=== PATIENT | female | born 1980 | race Caucasian/White ===

== ENCOUNTER 2017-04-19 09:10 | Emergency (ER) | payer OTHER ==
[2017-04-19 09:33] VITALS: BP 109/69; PULSE 94; TEMP 98.2; BMI 26.6
--- NOTE | 2017-04-19 10:25 | PDOC ---
History of Present Illness - History of Present Illness Initial Comments: 04/19/17 10:48 Patient is a 36 year old female with PMHx of from previous and currently 19 weeks , who presents to the ER with vaginal bleeding and lower abdominal pain since last night. Patient states that her LMP was in December. She has been releasing clots of blood vaginally that began last night. She was supposed to see her PCP today, but came to the ER instead because of her abdominal pain. PMD: Mayra Branham <Ade Dunlap - Last Filed: 04/19/17 10:48> <Rand Sánchez - Last Filed: 04/19/17 15:18> - General Chief Complaint: Vaginal Bleeding Stated Complaint: VAGINAL BLEEDING (19 WKS ) Time Seen by Provider: 04/19/17 10:19 Past History <Ade Dunlap - Last Filed: 04/19/17 10:48> - Past Medical History Asthma: No Cancer: No Cardiac Disorders: No COPD: No Diabetes: No HTN: No Seizures: No Thyroid Disease: No - Suicide/Smoking/Psychosocial Hx Smoking History: Never smoked Have you smoked in the past 12 months: No Information on smoking cessation initiated: No Hx Alcohol Use: No Drug/Substance Use Hx: No Substance Use Type: None Hx Substance Use Treatment: No <Rand Sánchez - Last Filed: 04/19/17 15:18> - Past Medical History Allergies/Adverse Reactions: Allergies Allergy/AdvReac Type Severity Reaction Status Date / Time No Known Allergies Allergy Verified 04/19/17 09:29 Home Medications: Ambulatory Orders Vit/Iron Fumarate/FA [ Tablet] 1 each PO DAILY 11/20/14 Acetaminophen [Tylenol .Regular Strength -] 650 mg PO Q4H PRN #0 tablet Ibuprofen [Motrin -] 600 mg PO Q4H PRN #30 tablet 11/25/14 Review of Systems - Review of Systems Comments:: 04/19/17 10:50 GENERAL/CONSTITUTIONAL: No fever or chills. No weakness. HEAD, EYES, EARS, NOSE AND THROAT: No change in vision. No ear pain or discharge. No sore throat. GASTROINTESTINAL: + lower abdominal pain. No nausea, vomiting, diarrhea or constipation. GENITOURINARY: No dysuria, frequency, or change in urination. CARDIOVASCULAR: No chest pain or shortness of breath. RESPIRATORY: No cough, wheezing, or hemoptysis. MUSCULOSKELETAL: No joint or muscle swelling or pain. No neck or back pain. SKIN: No rash NEUROLOGIC: No headache, vertigo, loss of consciousness, or change in strength/ sensation. ENDOCRINE: No increased thirst. No abnormal weight change. HEMATOLOGIC/LYMPHATIC: + vaginal bleeding (clots). No anemia, easy bleeding, or history of blood clots. ALLERGIC/IMMUNOLOGIC: No hives or skin allergy. <Ade Dunlap - Last Filed: 04/19/17 10:48> *Physical Exam - Vital Signs Last Vital Signs Temp Pulse Resp BP Pulse Ox 98.2 F 94 H 18 109/69 100 04/19/17 09:31 04/19/17 09:31 04/19/17 09:31 04/19/17 09:31 04/19/17 09:31 - Physical Exam Comments: 04/19/17 10:51 GENERAL: Awake, alert, and fully oriented, in no acute distress HEAD: No signs of trauma EYES: PERRLA, EOMI, sclera anicteric, conjunctiva clear ENT: Auricles normal inspection, hearing grossly normal, nares patent, oropharynx clear without exudates. Moist mucosa NECK: Normal ROM, supple, no lymphadenopathy, JVD, or masses LUNGS: Breath sounds equal, clear to auscultation bilaterally. No wheezes, and no crackles HEART: Regular rate and rhythm, normal S1 and S2, no murmurs, rubs or gallops ABDOMEN: +lower abdominal tenderness. Soft, normoactive bowel sounds. No guarding, no rebound. No masses EXTREMITIES: Normal range of motion, no edema. No clubbing or cyanosis. No cords, erythema, or tenderness NEUROLOGICAL: Cranial nerves II through XII grossly intact. Normal speech, normal gait SKIN: Warm, Dry, normal turgor, no rashes or lesions noted. PELVIC: No rashes or lesions, Fingertip at cervical os , active bleeding at cervix, small clots, no tissue . Positive suprapubic and adnexal tenderness. <Ade Dunlap - Last Filed: 04/19/17 10:48> - Vital Signs Last Vital Signs Temp Pulse Resp BP Pulse Ox 98.2 F 94 H 18 109/69 100 04/19/17 09:31 04/19/17 09:31 04/19/17 09:31 04/19/17 09:31 04/19/17 09:31 <Rand Sánchez - Last Filed: 04/19/17 15:18> ED Treatment Course - LABORATORY CBC & Chemistry Diagram: 04/19/17 11:00 04/19/17 11:00 <Rand Sánchez - Last Filed: 04/19/17 15:18> Medical Decision Making - Medical Decision Making 04/19/17 11:00 a/p: 36yo female with vaginal bleeding and abd cramping that started yesterday -labs tv ultrasound -ua -pain and nausea control ivf hydration concern for spontaneous 04/19/17 14:17 re-eval: no bleeding at this time no pain at this time discussed lab and imaging results. call placed to dr. branham to compare ultrasounds and hcg levels. 04/19/17 15:[address] branham - states prior ultrasound showed gestational sac without pole [place] [address]21 today gestational sac moving towards cervix and beta 7000 consistent with spontaneous this was discussed with dr. branham who agrees with expectant management and follow up with her on Wednesday for repeat beta this plan was discussed in full detail with the patient. She verbalizes full understanding and agrees with the plan. Pt is stable for d/c home at this time <Rand Sánchez - Last Filed: 04/19/17 15:18> *DC/Admit/Observation/Transfer - Attestations Scribe Attestion: 04/19/17 10:55 Documentation prepared by Ade Dunlap, acting as hospitalist medical director for Rand Sánchez DO. <Ade Dunlap - Last Filed: 04/19/17 10:48> - Discharge Dispostion Admit: No - Attestations Physician Attestion: 04/19/17 15:18 I, Dr. Rand Sánchez DO, attest that this document has been prepared under my direction and personally reviewed by me in its entirety. I further attest, that it accurately reflects all work, treatment, procedures and medical decision -making performed by me. <Rand Sánchez - Last Filed: 04/19/17 15:18> Diagnosis at time of Disposition: Spontaneous - Discharge Dispostion Disposition: HOME Condition at time of disposition: Stable - Referrals Referrals: Mayra Branham MD [Primary Care Provider] - - Patient Instructions Printed Discharge Instructions: DI for Miscarriage Additional Instructions: Please follow up with Dr. Branham on Wednesday for repeat lab work. Please take your ultrasound report and lab work to Dr. Gonzalez office. Please return to the ED with any concerns. - Post Discharge Activity
[2017-04-19] MEDS ORDERED: ACETAMINOPHEN 1000 MG/100 ML VIAL (NON FORMULARY) IVPB ONE (10:36)
[2017-04-19] MEDS ORDERED: SODIUM CHLORIDE 0.9% 1000 ML INFUS.BAG IV ONE (10:36)
[2017-04-19] MEDS ORDERED: ONDANSETRON 4 MG/2 ML VIAL IVPUSH ONE (10:58)
[2017-04-19] MEDS ORDERED: ACETAMINOPHEN INJECTION 100 ML IVPB ONE (11:01)
[2017-04-19 11:20] LABS: BASOPHIL 0.3 % (0-2.0); EOSINOPHIL 1.4 % (0-4.5); MCH 28.9 pg (25.7-33.7); MCHC 32.4 g/dl (32.0-36.0); MEAN CELL VOLUME 89.1 fl (80-96); MEAN PLT VOLUME 8.7 fl (7.5-11.1); NEUTROPHILS 77.9 % (42.8-82.8); PLATELET COUNT 217 K/MM3 (134-434); RDW 14.1 % (11.6-15.6); WHITE BLOOD COUNT 11.9 K/mm3 (4.0-10.0)
[2017-04-19 11:47] LABS: ALBUMIN 3.8 g/dl (3.4-5.0); ALK PHOS 79 U/L (45-117); ANION GAP 10 (8-16); BILIRUBIN,TOTAL 0.7 mg/dL (0.2-1.0); CALCIUM 8.8 mg/dL (8.5-10.1); CO2 24 mmol/L (21-32); CREATININE 0.7 mg/dL (0.55-1.02); GLUCOSE,RANDOM 113 mg/dL (74-106); SGOT/AST 15 U/L (15-37); SGPT/ALT 21 U/L (12-78); TOT PROT 7.4 g/dl (6.4-8.2)
[2017-04-19 11:50] LABS: PH,URINE 5.5 (5.0-8.0); URINE BILIRUBIN 1+ (NEGATIVE); URINE BLOOD 3+ (NEGATIVE); URINE GLUCOSE (UA) NEGATIVE (NEGATIVE); URINE KETONE TRACE (NEGATIVE); URINE NITRITE NEGATIVE (NEGATIVE); URINE PROTEIN TRACE (NEGATIVE); URINE UROBILINOGEN 0.2 mg/dL (0.2-1.0)
[2017-04-19 11:55] LABS: INR 1.09 (0.82-1.09); PROTHROMBIN TIME (PATIENT) 12.3 SEC (9.98-11.88)
[2017-04-19 11:58] LABS: ACTIVATED PTT 28.4 SECONDS (26.9-34.4)
[2017-04-19 11:59] LABS: URINE APPEARANCE CLOUDY; URINE COLOR YELLOW
[2017-04-19 12:47] LABS: URINE MUCUS MANY; URINE RBC 181 /hpf (0-3)
[2017-04-19 17:33] LABS: URINE LEUK ESTERASE Negative (NEGATIVE)
== END 2017-04-19 15:35 | disposition home or self-care (01) ==
LOC: JER 09:10
PROC: 3E033NZ Introduction of Analgesics, Hypnotics, Sedatives into Peripheral Vein, Percutaneous Approach (ICD-10-PCS; principal; 2017-04-19)
PROC: 3E033GC Introduction of Other Therapeutic Substance into Peripheral Vein, Percutaneous Approach (ICD-10-PCS; 2017-04-19)
DX: O03.4 Incomplete spontaneous abortion without complication (principal); Z3A.19 19 weeks gestation of pregnancy
CPT/HCPCS: 36415; 76817-TC; 80053; 81003; 81015; 84702; 85025; 85610; 85730; 86850; 86900; 86901; 96374; 96375; 99283-25

== ENCOUNTER 2019-01-02 10:43 | Inpatient (IN) | payer OTHER ==
[2019-01-05] MEDS: ELECTROLYTE-148 SOLN 1,000 ML IV SCH ×2 (13:15→14:13)
[2019-01-05] MEDS ORDERED: CITRIC ACID/SODIUM CITRATE 30 ML UNIT-DOSE CUP PO ONE (13:28)
--- NOTE | 2019-01-05 14:10 | HP ---
Past Medical History - Primary Care Physician PCP:: Archie Freeman - Admission Chief Complaint: 39 weeks, previous c/s, request of repeat c/s and BTL History of Present Illness: 38 yo f 39 weeks,with previous c/s, requesting repeat c/s ,and BTL , cx clp, vx -3 mi, fhr cat 1, risks of repeat c/s discussed, ulternatives and discussed , aware btl is permanent and has small risks of ectopic and has failure risks, and not reversible History Source: Patient Limitations to Obtaining History: No Limitations - Past Medical History ...: 3 ...Para: 1 ...Term: 1 ...: 0 ...Spon : 1 ...Induced : 0 ...Multiple Gestation: 0 ...LMP: 04/04/18 ... Weeks Gestation by Dates: 39.3 ...EDC by Dates: 01/09/19 ...EDC by Sono: 01/09/19 Infectious Disease: Yes: STD's (hx of syphillis, txed with Bicillin 3 times) - Past Surgical History Past Surgical History: Yes: Hx Myomectomy: No Hx Transabdominal Cerclage: No - Smoking History Smoking history: Never smoked Have you smoked in the past 12 months: No - Alcohol/Substance Use Hx Alcohol Use: No History of Substance Use: reports: None - Social History History of Recent Travel: No Home Medications - Allergies Allergies/Adverse Reactions: Allergies Allergy/AdvReac Type Severity Reaction Status Date / Time No Known Allergies Allergy Verified 04/19/17 09:29 - Home Medications Home Medications: Ambulatory Orders Vit/Iron Fumarate/FA [ Tablet] 1 each PO DAILY 11/20/14 Review of Systems - Review of Systems Constitutional: reports: No Symptoms Eyes: reports: No Symptoms HENT: reports: No Symptoms Neck: reports: No Symptoms Cardiovascular: reports: No Symptoms Respiratory: reports: No Symptoms Gastrointestinal: reports: No Symptoms Genitourinary: reports: No Symptoms Breasts: reports: No Symptoms Reported Musculoskeletal: reports: No Symptoms Integumentary: reports: No Symptoms Neurological: reports: No Symptoms Endocrine: reports: No Symptoms Hematology/Lymphatic: reports: No Symptoms Physical Exam - Maternity Vital Signs: Vital Signs Temperature 98.4 F 01/05/19 13:15 Pulse Rate 88 01/05/19 13:15 Respiratory Rate 20 01/05/19 13:15 Blood Pressure 127/88 01/05/19 13:15 O2 Sat by Pulse Oximetry (%) Constitutional: Yes: Well Nourished, No Distress, Calm Eyes: Yes: WNL, Conjunctiva Clear, EOM Intact HENT: Yes: WNL, Atraumatic, Normocephalic Neck: Yes: WNL, Supple, Trachea Midline Cardiovascular: Yes: WNL, Regular Rate and Rhythm Breast(s): Yes: WNL - Abdominal Exam/OB Fundal Height: 40 Number of Fetuses: Single Presentation: Vertex Contractions: No Intensity: Unaware Monitor Mode: External Heart Rate Location: [facility] Category: I Accelerations: Non-Uniform Decelerations: None - Vaginal Exam/OB Vaginal Bleediing: No Speculum Exam: No Dilatation (cm): 0 Effacement (%): 0 Amniotic Membrane Status: Intact Presentation: Vertex/Position Station: -3 - Physical Exam Musculoskeletal: Yes: WNL Extremities: Yes: WNL Edema: Yes Edema: LLE: 1+, RLE: 1+ Deep Tendon Reflex Grade: Normal +2 Psychiatric: Yes: WNL Hemorrhage Risk Assessment - Risk Factors Medium Risk Factors: Yes: Prior , uterine surgery,or multiple laparotomies Risk Score: 1 Risk Level: Medium Risk Problem List - Problems (1) with 39 completed weeks gestation Code(s): Z3A.39 - 39 WEEKS GESTATION OF (2) Previous section complicating Code(s): O34.219 - MATERNAL CARE FOR UNSP TYPE SCAR FROM PREVIOUS DEL (3) Admission for sterilization Code(s): Z30.2 - ENCOUNTER FOR STERILIZATION Assessment/Plan admit for repeat c/s and BTL risks and benfits discussed
[2019-01-05] MEDS ORDERED: ceFAZolin SODIUM 1 GM VIAL ONE (14:12)
[2019-01-05] MEDS ORDERED: morphine SULFATE/PF 0.5 MG/ML (2cc Syringe - QUVA) ONE (14:12)
[2019-01-05] MEDS ORDERED: ePHEDrine SULFATE 50 MG/1 ML AMPULE ONE (14:12)
[2019-01-05] MEDS ORDERED: OXYTOCIN 30 UNITS in 0.9% NS 60 UNIT/1,000 ML INFUS.BAG IVPB ONE (14:24)
[2019-01-05] MEDS ORDERED: OXYTOCIN 20 UNITS in 0.9% NS 20 UNIT/1,000 ML INFUS.BAG IV ONE (14:38)
[2019-01-05 14:45] VITALS: BMI 30.3
[2019-01-05] MEDS ORDERED: OXYTOCIN 10 UNITS/ML VIAL ONE (14:49)
[2019-01-05] MEDS ORDERED: DEXAMETHASONE SOD PHOSPHATE 4 MG/1 ML VIAL ONE (14:49)
[2019-01-05] MEDS ORDERED: ONDANSETRON 4 MG/2 ML VIAL IVPUSH PRN (15:16)
[2019-01-05] MEDS ORDERED: ACETAMINOPHEN 1000 MG/100 ML VIAL (NON FORMULARY) IVPB PRN (15:17)
[2019-01-05] MEDS ORDERED: KETOROLAC TROMETHAMINE 30 MG/1 ML VIAL ONE (15:18)
[2019-01-05] MEDS ORDERED: METHYLERGONOVINE MALEATE 0.2 MG/1 ML AMP IM PRN (15:33)
[2019-01-05] MEDS ORDERED: BENZOCAINE 28 GM HEMORRHOIDAL OINTMENT PR PRN (15:33)
[2019-01-05] MEDS ORDERED: BENZOCAINE 20% 57 GM BOTTLE TP PRN (15:33)
[2019-01-05] MEDS ORDERED: WITCH HAZEL 50% (TUCKS) 40 PAD/JAR PAD TP PRN (15:33)
[2019-01-05] MEDS ORDERED: diphenhydrAMINE HCL 25 MG CAPSULE (FP) PO PRN (15:33)
[2019-01-05] MEDS ORDERED: oxyCODONE HCL 5 MG TABLET PO PRN ×2 (15:33)
--- NOTE | 2019-01-05 15:39 | OP ---
Operative Note - Note: Operative Date: 01/05/19 Pre-Operative Diagnosis: 39 weeks, previous c/s, sterlization Operation: repeat LST c/s,BTL Findings: live baby boy 9. ROT Surgeon: Archie Freeman Interior Design Coordinator: Eliu Mantilla Anesthesiologist/TEACHER HOME THERAPY: Theersa Sanders Anesthesia: Spinal Specimens Removed: placenta Estimated Blood Loss (mls): 500 Drains & Tubes with Location: varela Operative Report Dictated: Yes
[2019-01-05] MEDS ORDERED: DEXTROSE 5%-LACTATED RINGERS 1,000 ML IV SCH (15:45)
[2019-01-05] MEDS ORDERED: OXYTOCIN 20 UNITS in 0.9% NS 20 UNIT/1,000 ML INFUS.BAG IV SCH (15:45)
[2019-01-05] MEDS: CEFAZOLIN 1 GM in DEXTROSE 5%-WATER - 50 ML IVPB SCH (18:14)
[2019-01-05] MEDS: IBUPROFEN 800 MG/8 ML IJ IVPB PRN (20:21)
--- NOTE | 2019-01-05 23:27 | OP ---
DATE OF OPERATION: 01/05/2019 PREOPERATIVE DIAGNOSIS: 39 weeks, previous section, request of repeat section and tubal ligation. POSTOPERATIVE DIAGNOSIS: 39 weeks, previous section, request of repeat section and tubal ligation. SURGEON: Abdiaziz Freeman M.D. VENDING MACHINE REFILLER: Lion Torres ANESTHESIA: Spinal. ANESTHESIOLOGIST: Theresa Sanders MD ESTIMATED BLOOD LOSS: 500 mL. FINDINGS: Was a live baby boy, Apgars 9 and 9. OPERATION: Patient was taken to operating room with adequate epidural anesthesia. Abdomen and perineum were prepped and draped. Pfannenstiel abdominal skin incision was made. Abdominal wall was cut layer by layer until the peritoneum was exposed and incised. Upon entering the abdominal cavity, the lower uterine segment was identified, and uterovesical fold of the peritoneum was established. The bladder was pushed down. Then with the lower blade of the Willie retractor in the pelvis, a low transverse incision was made. The incision extended laterally. Amniotic sac was entered. Clear fluid. Head delivered. Nasopharynx was suctioned. A live baby boy was delivered without any difficulty. Placenta was delivered manually. Uterine cavity was cleared of all remaining tissue. Uterine incision was closed in 2 layers, the 1st layer with 0 Biosyn continuous suture, the 2nd layer with 0 Biosyn imbricating the 1st layer. Bladder flap was closed with 0 Biosyn continuous suture. Both tubes and ovaries were checked and were normal. No active bleeding was seen. Then the right tube was grasped with [place] clamp and right salpingectomy was done by applying a Bell clamp along the mesosalpinx and bleeding points were tied with 2-0 plain ties and tube was removed with cautery. The same procedure repeated for opposite tube. No active bleeding was seen. All the lap, sponge, and instrument counts were correct. Peritoneum was closed with 0 Biosyn continuous suture. Muscles were brought together interrupted suture with 0 Biosyn. Fascia was closed with 0 Biosyn continuous sutures. Subcutaneous fat interrupted sutures 0 Biosyn, and the skin was closed with 4-0 Biosyn subcuticular continuous suture. The patient tolerated the procedure well and left the OR in good condition. ABDIAZIZ FREEMAN M.D. /[id number]
[2019-01-06] MEDS ORDERED: CEFAZOLIN 1 GM/D5W 1 GM/50 ML BAG IVPB SCH (02:30)
[2019-01-06] MEDS: CEFAZOLIN 1 GM in DEXTROSE 5%-WATER - 50 ML IVPB SCH (06:24)
[2019-01-06 06:57] LABS: BASO % 0.1 % (0-2.0); EOS % 0.1 % (0-4.5); HEMATOCRIT 31.1 % (32.4-45.2); HEMOGLOBIN 10.4 GM/dL (10.7-15.3); LYMPH % 13.7 % (8-40); MCH 30.2 pg (25.7-33.7); MCHC 33.5 g/dl (32.0-36.0); MEAN CELL VOLUME 90.1 fl (80-96); MEAN PLT VOLUME 9.4 fl (7.5-11.1); NEUT % 80.1 % (42.8-82.8); PLATELET COUNT 136 K/MM3 (134-434); RBC 3.45 M/mm3 (3.60-5.2); RDW 16.2 % (11.6-15.6)
--- NOTE | 2019-01-06 07:57 | PN ---
Progress Note (short form) - Note Progress Note: pod 1 s/p repeat c/s ,BTL doing well, no c/o urine blood tinged , cloudy , adequate abdomen soft, no distension, no cva , BS present incision dry, clean no calf tenderness no excess vaginal bleeding impression blood tinged urine plan keep varela in U/A ,C/S uro consult, revaluate CBC, BMP 01/06/19 06:30 Last Vital Signs Temp Pulse Resp BP Pulse Ox 97.8 F 53 L 20 106/64 100 01/06/19 06:00 01/06/19 06:00 01/06/19 06:00 01/06/19 06:00 01/05/19 16:45 cont. iv antibiotic ,till varela removed Problem List - Problems (1) with 39 completed weeks gestation Code(s): Z3A.39 - 39 WEEKS GESTATION OF (2) Previous section complicating Code(s): O34.219 - MATERNAL CARE FOR UNSP TYPE SCAR FROM PREVIOUS DEL (3) Admission for sterilization Code(s): Z30.2 - ENCOUNTER FOR STERILIZATION
[2019-01-06] MEDS ORDERED: DEXTROSE 5%-LACTATED RINGERS 1,000 ML IV SCH (08:45)
[2019-01-06] MEDS: IBUPROFEN 800 MG/8 ML IJ IVPB PRN ×2 (09:25→16:14)
[2019-01-06] MEDS: ENOXAPARIN NA (PORCINE) 40 MG/0.4 ML DISP.SYRIN SQ SCH (09:29)
[2019-01-06] MEDS: CEFAZOLIN 1 GM/D5W 1 GM/50 ML BAG IVPB SCH ×2 (10:05→17:49)
--- NOTE | 2019-01-06 11:31 | PN ---
Progress Note (short form) - Note Progress Note: Anesthesia postop note 38 y/o F, s/p spinal anesthesia/duramorph for repeat section. POD#!, vss, aaox3, pain well controlled, sensory motor intact distally. No anesthesia complications.
[2019-01-06] MEDS ORDERED: BISACODYL 10 MG SUPP.RECT PR PRN (15:33)
--- NOTE | 2019-01-06 17:28 | CON.GU ---
Consult Consult Specialty:: Referred by:: Pete Reason for Consultation:: hematuria after repeat C/S - History of Present Illness Chief Complaint: hematuria after repeat C/S History of Present Illness: POD 1 from repeat C/S. Reportedly uneventful however she had some gross hematuria in the varela bag this morning. Now it is clear. She is having some pelvic pain associated with the C/S. No pre-operative urinary complaints. No history of recurrent UTIS or kidney stones. - History Source History Provided By: Patient Limitations to Obtaining History: No Limitations - Past Medical History Renal/: No: Renal Failure, Renal Inusuff, BPH, Cancer, Hematuria, Hemodialysis , Neurogenic Bladder, Renal Calculi, UTI, Other ...LMP: 03/05/14 Infectious Disease: Yes: STD's (hx of syphillis, txed with Bicillin 3 times) - Past Surgical History Past Surgical History: Yes: - Alcohol/Substance Use Hx Alcohol Use: No History of Substance Use: reports: None - Smoking History Smoking history: Never smoked Have you smoked in the past 12 months: No - Social History History of Recent Travel: No Home Medications - Allergies Allergies/Adverse Reactions: Allergies Allergy/AdvReac Type Severity Reaction Status Date / Time No Known Allergies Allergy Verified 01/06/19 08:36 - Home Medications Home Medications: Ambulatory Orders Vit/Iron Fumarate/FA [ Tablet] 1 each PO DAILY 11/20/14 Review of Systems - Review of Systems Genitourinary: reports: Hematuria Physical Exam- Vital Signs: Vital Signs Temperature 97.9 F 01/06/19 14:00 Pulse Rate 77 01/06/19 14:00 Respiratory Rate 20 01/06/19 17:00 Blood Pressure 104/59 L 01/06/19 14:00 O2 Sat by Pulse Oximetry (%) 100 01/05/19 16:45 Renal/: Yes: Varela Present. No: Bladder Distention, CVA Tenderness - Left, CVA Tenderness - Right, Hematuria Labs: CBC, BMP 01/06/19 06:30 Problem List - Problems (1) Hematuria Assessment/Plan: patient appears comfortable and the varela is draining clear urine. Send U/A and urine culture. can remove varela prior to discharge. No other evidence of bladder injury. reconsult if she re-develops gross hematuria. Code(s): R31.9 - HEMATURIA, UNSPECIFIED
[2019-01-06] MEDS: SIMETHICONE 80 MG TAB.CHEW (FP) PO PRN ×2 (17:52→22:46)
[2019-01-06 18:28] LABS: PH,URINE 5.5 (5.0-8.0); URINE APPEARANCE CLEAR; URINE BILIRUBIN NEGATIVE (NEGATIVE); URINE COLOR YELLOW; URINE GLUCOSE (UA) NEGATIVE (NEGATIVE); URINE KETONE NEGATIVE (NEGATIVE); URINE LEUK ESTERASE NEGATIVE (NEGATIVE); URINE NITRITE NEGATIVE (NEGATIVE); URINE PROTEIN NEGATIVE (NEGATIVE); URINE UROBILINOGEN 0.2 mg/dL (0.2-1.0)
[2019-01-06] MEDS: IBUPROFEN 600 MG TABLET (FP) PO PRN (22:46)
[2019-01-06] MEDS: ACETAMINOPHEN 325 MG TABLET (FP) PO PRN (22:46)
[2019-01-07] MEDS: CEFAZOLIN 1 GM/D5W 1 GM/50 ML BAG IVPB SCH ×2 (02:03→09:20)
[2019-01-07] MEDS: SIMETHICONE 80 MG TAB.CHEW (FP) PO PRN ×3 (05:39→21:31)
[2019-01-07] MEDS: IBUPROFEN 600 MG TABLET (FP) PO PRN ×3 (05:40→21:31)
[2019-01-07] MEDS: ACETAMINOPHEN 325 MG TABLET (FP) PO PRN ×3 (05:40→21:31)
[2019-01-07] MEDS: ENOXAPARIN NA (PORCINE) 40 MG/0.4 ML DISP.SYRIN SQ SCH (09:20)
--- NOTE | 2019-01-07 12:13 | PN ---
Post Progress Note - Subjective Subjective: Pain controlled. No fevers/chills. Varela just discontinued Post Day: 2 Type of Delivery: Repeat C/S Vital Signs: Vital Signs Temperature 98.6 F 01/07/19 10:00 Pulse Rate 69 01/07/19 10:00 Respiratory Rate 20 01/07/19 10:00 Blood Pressure 112/70 01/07/19 10:00 O2 Sat by Pulse Oximetry (%) 100 01/05/19 16:45 Uterus: Yes: Fundus below umbilicus Incision: Yes: Dressing dry and intact Abdomen/GI: Yes: Abdomen soft Lochia: Yes: Rubra Lochia, amount: Small Extremities: Yes: Calves non-tender Activity: Ambulating - Labs Labs: CBC WBC 11.0 K/mm3 (4.0-10.0) H 01/06/19 06:30 RBC 3.45 M/mm3 (3.60-5.2) L 01/06/19 06:30 Hgb 10.4 GM/dL (10.7-15.3) L 01/06/19 06:30 Hct 31.1 % (32.4-45.2) L 01/06/19 06:30 MCV 90.1 fl (80-96) 01/06/19 06:30 MCH 30.2 pg (25.7-33.7) 01/06/19 06:30 MCHC 33.5 g/dl (32.0-36.0) 01/06/19 06:30 RDW 16.2 % (11.6-15.6) H 01/06/19 06:30 Plt Count 136 K/MM3 (134-434) 01/06/19 06:30 MPV 9.4 fl (7.5-11.1) 01/06/19 06:30 Absolute Neuts (auto) 8.8 K/mm3 (1.5-8.0) H 01/06/19 06:30 Neutrophils % 80.1 % (42.8-82.8) 01/06/19 06:30 Lymphocytes % 13.7 % (8-40) D 01/06/19 06:30 Monocytes % 6.0 % (3.8-10.2) 01/06/19 06:30 Eosinophils % 0.1 % (0-4.5) D 01/06/19 06:30 Basophils % 0.1 % (0-2.0) 01/06/19 06:30 Nucleated RBC % 0 % (0-0) 01/06/19 06:30 Assessment/Plan 38yo s/p RLTCS, POD#2 Routine PP care PO pain control D/C varela, urine clear, culture negative D/C Ancef OOB, mobilize D/C to home POD#3 if stable Mark Oneal MD
[2019-01-07] MEDS ORDERED: SENNOSIDES/DOCUSATE COMBO (SENNA PLUS) TABLET (UD) PO PRN (22:00)
[2019-01-08] MEDS: SIMETHICONE 80 MG TAB.CHEW (FP) PO PRN ×2 (06:24→12:52)
[2019-01-08] MEDS: IBUPROFEN 600 MG TABLET (FP) PO PRN ×2 (06:24→12:52)
[2019-01-08] MEDS: ACETAMINOPHEN 325 MG TABLET (FP) PO PRN ×2 (06:24→12:51)
[2019-01-08 08:49] LABS: BASO % 0.3 % (0-2.0); HEMATOCRIT 32.8 % (32.4-45.2); LYMPH % 19.7 % (8-40); MCH 30.2 pg (25.7-33.7); MCHC 33.5 g/dl (32.0-36.0); MEAN CELL VOLUME 90.1 fl (80-96); MONO % 4.5 % (3.8-10.2); NEUT % 73.5 % (42.8-82.8); PLATELET COUNT 168 K/MM3 (134-434); RBC 3.65 M/mm3 (3.60-5.2); RDW 16.3 % (11.6-15.6); WHITE BLOOD COUNT 7.7 K/mm3 (4.0-10.0)
[2019-01-08] MEDS: ENOXAPARIN NA (PORCINE) 40 MG/0.4 ML DISP.SYRIN SQ SCH (09:09)
[2019-01-08 09:40] VITALS: BP 126/74; PULSE 61; TEMP 98.4
--- NOTE | 2019-01-08 11:26 | PN ---
Post Progress Note - Subjective Subjective: Pain controlled. Voiding freely. No fevers/chills. Type of Delivery: Repeat C/S Vital Signs: Vital Signs Temperature 98.4 F 01/08/19 09:38 Pulse Rate 61 01/08/19 09:38 Respiratory Rate 20 01/08/19 09:38 Blood Pressure 126/74 01/08/19 09:38 O2 Sat by Pulse Oximetry (%) 100 01/05/19 16:45 Breast Exam: Yes: Soft Uterus: Yes: Fundus below umbilicus Incision: Yes: Dressing dry and intact Abdomen/GI: Yes: Abdomen soft Lochia: Yes: Rubra Lochia, amount: Small Extremities: Yes: Calves non-tender Perineum: Yes: Intact Activity: Ambulating - Labs Labs: CBC WBC 7.7 K/mm3 (4.0-10.0) 01/08/19 08:10 RBC 3.65 M/mm3 (3.60-5.2) 01/08/19 08:10 Hgb 11.0 GM/dL (10.7-15.3) 01/08/19 08:10 Hct 32.8 % (32.4-45.2) 01/08/19 08:10 MCV 90.1 fl (80-96) 01/08/19 08:10 MCH 30.2 pg (25.7-33.7) 01/08/19 08:10 MCHC 33.5 g/dl (32.0-36.0) 01/08/19 08:10 RDW 16.3 % (11.6-15.6) H 01/08/19 08:10 Plt Count 168 K/MM3 (134-434) D 01/08/19 08:10 MPV 9.0 fl (7.5-11.1) 01/08/19 08:10 Absolute Neuts (auto) 5.7 K/mm3 (1.5-8.0) 01/08/19 08:10 Neutrophils % 73.5 % (42.8-82.8) 01/08/19 08:10 Lymphocytes % 19.7 % (8-40) D 01/08/19 08:10 Monocytes % 4.5 % (3.8-10.2) 01/08/19 08:10 Eosinophils % 2.0 % (0-4.5) D 01/08/19 08:10 Basophils % 0.3 % (0-2.0) 01/08/19 08:10 Nucleated RBC % 0 % (0-0) 01/08/19 08:10 Assessment/Plan 38yo s/p RLTCS, POD#3 Routine PP care PO pain control Voiding w/o issues OOB, mobilize D/C to home today Mark Oneal MD
--- NOTE | 2019-01-08 12:38 | DS ---
Physical Examination Vital Signs: Vital Signs Temperature 98.4 F 01/08/19 09:38 Pulse Rate 61 01/08/19 09:38 Respiratory Rate 20 01/08/19 09:38 Blood Pressure 126/74 01/08/19 09:38 O2 Sat by Pulse Oximetry (%) 100 01/05/19 16:45 Constitutional: Yes: Well Nourished, No Distress, Calm Eyes: Yes: WNL, Conjunctiva Clear, EOM Intact HENT: Yes: WNL, Atraumatic, Normocephalic Neck: Yes: WNL, Supple, Trachea Midline Cardiovascular: Yes: WNL, Regular Rate and Rhythm Respiratory: Yes: WNL, Regular, CTA Bilaterally Gastrointestinal: Yes: WNL, Normal Bowel Sounds Musculoskeletal: Yes: WNL Extremities: Yes: WNL Edema: No Integumentary: Yes: WNL Neurological: Yes: WNL, Alert, Oriented ...Motor Strength: WNL Psychiatric: Yes: WNL Labs: CBC, BMP 01/08/19 08:10 Discharge Summary Reason For Visit: & BTL Current Active Problems Admission for sterilization (Acute) Hematuria (Acute) with 39 completed weeks gestation (Acute) Previous section complicating (Acute) Procedures: Principal: Other Procedures: Hospital Course: Patient presented for a scheduled RLTCS She had an uncomplicated RLTCS aside from postoperative hematuria POD#1 the urine cleared POD#2 her varela and Ancef were discontinued She was discharged home on POD#3 in stable condition. Mark Oneal MD Condition: Stable - Instructions Diet, Activity, Other Instructions: Regular Diet Follow up in one week with Dr. Freeman for your check Referrals: Archie Freeman MD [Staff Physician] - Disposition: HOME - Home Medications Comprehensive Discharge Medication List: Ambulatory Orders Vit/Iron Fumarate/FA [ Tablet] 1 each PO DAILY 11/20/14 Ibuprofen 600 mg PO Q6H PRN #30 tablet 01/07/19
--- NOTE | 2019-01-10 16:07 | PATH ---
Surgical Pathology Report Patient Name: ROSALIND HEMPHILL [facility]. Rec. #: [id number] /Age/Gender: 1980 (Age: 38) / F Account: [id number] Location: [facility] OBS/ROOF TILE LAYER Taken: 01/05/2019 Received: 01/06/2019 Reported: 01/10/2019 Physicians: Archie Freeman M.D. Specimen(s) Received A: PLACENTA B: LEFT FALLOPIAN TUBE C: RIGHT FALLOPIAN TUBE Clinical History , 2014 Final Diagnosis A. PLACENTA, SECTION: 468 G THIRD TRIMESTER PLACENTA WITH TRIVASCULAR UMBILICAL CORD AND UNREMARKABLE PLACENTAL MEMBRANES. B. FALLOPIAN TUBE, PORTION, LEFT, TUBAL LIGATION: UNREMARKABLE FALLOPIAN TUBE (INCLUDING FIMBRIATED END AND FULL LUMINAL PORTION). C. FALLOPIAN TUBE, PORTION, RIGHT, TUBAL LIGATION: FALLOPIAN TUBE WITH FOCAL ENDOSALPINGOSIS AND WALTHARD CELL NEST CYSTS (INCLUDING FIMBRIATED END AND FULL LUMINAL PORTION). Electronically Signed Maryjane Rodriguez M.D. Gross Description A. The specimen is received fresh labeled placenta and is a 468 gram, 16.0 x 13.5 x 3.6 cm. placenta with attached membranes and umbilical cord. The attached membranes are rojas, translucent with focal opacities and insert marginally. The umbilical cord measures 25 cm. in length and averages 1.2 cm. in diameter. The cord inserts eccentrically, 3.5 cm. to the nearest margin. No true knots or strictures are identified. Cut surface of the umbilical cord reveals 3 vessels. The surface is morrison blue with moderate fibrin deposition and appropriate caliber vessels. The maternal surface is red-brown with focal defects. Sectioning reveals red-brown, spongy parenchyma. No lesions are identified. Electro Mechanical Solar Technician sections are submitted in three cassettes as follows: 1- membrane rolls and umbilical cord; 2-3- full thickness sections of placenta. B. Received in formalin labeled "portion of left tube," is a 2.3 cm in length fimbriated fallopian tube. The outer surface is rojas-landa and smooth. Sectioning reveals an unremarkable lumen. Electro Mechanical Solar Technician sections are submitted in 2 cassettes as follows: 1-fimbria; 2-cross sections of fallopian tube. C. Received in formalin labeled "portion of right tube," is a 2.5 cm in length fimbriated fallopian tube. The outer surface is rojas-landa and smooth. Sectioning reveals unremarkable lumen. Electro Mechanical Solar Technician sections are submitted in 2 cassettes as follows: 1-fimbria; 2-cross sections of fallopian tube. 01/09/2019 [facility]01/09/2019
== END 2019-01-08 13:45 | disposition home or self-care (01) | DRG 540 ==
LOC: JLDR 01-05 12:40 → J3W 01-05 17:00
PROVIDERS: ADMIT Obstetrics & Gynecology; ATTEND Obstetrics & Gynecology
PROC: 10D00Z1 Extraction of Products of Conception, Low, Open Approach (ICD-10-PCS; principal; 2019-01-05)
PROC: 0UL70CZ Occlusion of Bilateral Fallopian Tubes with Extraluminal Device, Open Approach (ICD-10-PCS; 2019-01-05)
DX: O34.219 Maternal care for unspecified type scar from previous cesarean delivery (principal); O90.89 Other complications of the puerperium, not elsewhere classified; R31.9 Hematuria, unspecified; Z3A.39 39 weeks gestation of pregnancy; Z37.0 Single live birth; Z30.2 Encounter for sterilization
CPT/HCPCS: 36415; 81003; 85025; 87086; 88302-TC; 88307-TC